=== PATIENT | female | born 2000 | race Caucasian/White ===

== ENCOUNTER 2024-09-26 19:51 | Emergency (ER) | payer BC ==
[~2024-09-26] VITALS: Ht 154.9 cm; Wt 77.3 kg
[2024-09-26] MEDS ORDERED: Ketorolac 30 MG/ML VIAL IM ONE (20:15)
[2024-09-26 20:59] VITALS: BP 124/79
== END 2024-09-26 20:59 | disposition home or self-care (01) ==
LOC: ED 19:51
DX: M79.602 Pain in left arm (principal)
CPT/HCPCS: J1885